=== PATIENT | male | born 1985 | race Caucasian/White ===

== ENCOUNTER 2024-02-28 22:41 | Emergency (ER) | payer SELFPAY ==
[~2024-02-28] VITALS: Ht 185.4 cm; Wt 100.0 kg
[2024-02-28 22:50] VITALS: TEMP 98.5
[2024-02-29] MEDS: LIDOcaine 1% W/epiNEPHrine 1:100,000 20ml vial IJ ONE (00:20)
[2024-02-29] MEDS: bacitracin 15gm ointment TP ONE (01:09)
[2024-02-29 01:14] VITALS: BP 119/79; PULSE 87; RESP 16; O2SAT 97
== END 2024-02-29 01:18 | disposition home or self-care (01) ==
LOC: ER 22:45
DX: S51.011A Laceration without foreign body of right elbow, initial encounter (principal); R07.81 Pleurodynia; Y08.89XA Assault by other specified means, initial encounter; Y93.89 Activity, other specified; Y92.89 Other specified places as the place of occurrence of the external cause; Y99.8 Other external cause status
CPT/HCPCS: 12002; 99282; A6258; A6449